=== PATIENT | male | born 1980 | race American Indian/Alaskan Native ===

== ENCOUNTER 2020-12-21 13:32 | Emergency (ER) | payer OTHER ==
--- NOTE | 2020-12-21 14:49 | Emergency Department Report ---
ED Extremity Problem HPI - General Chief complaint: Extremity Problem,Nontraumatic Stated complaint: RT ARM PAIN Time Seen by Provider: 12/21/20 14:40 Source: patient Mode of arrival: Ambulatory Limitations: No Limitations - History of Present Illness Initial comments: Patient is a 40-year-old male presents emergency room complaints of right arm pain and swelling that began 3 days ago. He denies any fall or injury. He denies any history of gout. He denies ever having this in the past. He denies any numbness, paresthesias, or weakness. He states that he has pain with movement. He denies any pain in his neck. He has a past medical history of diabetes and takes Lantus and metformin. He denies any recent surgery, recent travel, chest pain, shortness of breath. He denies any medication allergies. - Related Data Previous Rx's Medication Instructions Recorded Last Taken Type Naproxen [EC-Naproxen] 500 mg PO BID PRN #14 tablet. 12/21/20 Unknown Rx methOCARBAMOL [Robaxin TAB] 500 mg PO BID PRN #14 tab 12/21/20 Unknown Rx Allergies Allergy/AdvReac Type Severity Reaction Status Date / Time No Known Allergies Allergy Unverified 12/21/20 14:17 ED Review of Systems ROS: Stated complaint: RT ARM PAIN Other details as noted in HPI Comment: All other systems reviewed and negative ED Past Medical Hx - Past Medical History Previous Medical History?: Yes Hx Diabetes: Yes - Surgical History Past Surgical History?: No - Medications Home Medications: Home Medications Medication Instructions Recorded Confirmed Last Taken Type Naproxen [EC-Naproxen] 500 mg PO BID PRN #14 tablet. 12/21/20 Unknown Rx methOCARBAMOL [Robaxin TAB] 500 mg PO BID PRN #14 tab 12/21/20 Unknown Rx ED Physical Exam - General Limitations: No Limitations General appearance: alert, in no apparent distress - Head Head exam: Present: atraumatic, normocephalic - Eye Eye exam: Present: normal appearance - ENT ENT exam: Present: mucous membranes moist - Respiratory Respiratory exam: Present: normal lung sounds bilaterally. Absent: respiratory distress, wheezes, rales, rhonchi, stridor, chest wall tenderness, accessory muscle use, decreased breath sounds, prolonged expiratory - Cardiovascular Cardiovascular Exam: Present: regular rate, normal rhythm, normal heart sounds. Absent: systolic murmur, diastolic murmur, rubs, gallop - Extremities Exam Extremities exam: Present: other (no bony ttp of the RUE, trace edema present to the right hand, no increased warmth, no erythema, sensation intact, 2+ radial pulse, FROM of the RUE, pain with ROM Of the joint but has full ROM, 5/5 strength in the BUE, neurovascularly intact, no skin changes) - Neurological Exam Neurological exam: Present: alert, oriented X3 - Psychiatric Psychiatric exam: Present: normal affect, normal mood - Skin Skin exam: Present: warm, dry, intact ED Course Vital Signs 12/21/20 14:18 Temperature 98.8 F Pulse Rate 97 H Respiratory 20 Rate Blood Pressure 165/93 O2 Sat by Pulse 100 Oximetry ED Medical Decision Making - Lab Data Result diagrams: 12/21/20 14:51 12/21/20 14:51 Lab Results 12/21/20 12/21/20 12/21/20 Range/Units 14:51 14:51 14:56 WBC 8.0 (4.5-11.0) K/mm3 RBC 4.72 (3.65-5.03) M/mm3 Hgb 14.7 (11.8-15.2) gm/dl Hct 42.1 (35.5-45.6) % MCV 89 (84-94) fl MCH 31 (28-32) pg MCHC 35 H (32-34) % RDW 14.4 (13.2-15.2) % Plt Count 211 (140-440) K/mm3 Lymph % (Auto) 27.5 (13.4-35.0) % [place] % (Auto) 6.9 (0.0-7.3) % Eos % (Auto) 1.7 (0.0-4.3) % Baso % (Auto) 0.7 (0.0-1.8) % Lymph # (Auto) 2.2 (1.2-5.4) K/mm3 [place] # (Auto) 0.5 (0.0-0.8) K/mm3 Eos # (Auto) 0.1 (0.0-0.4) K/mm3 Baso # (Auto) 0.1 (0.0-0.1) K/mm3 Seg Neutrophils % 63.2 (40.0-70.0) % Seg Neutrophils # 5.0 (1.8-7.7) K/mm3 ESR 7 (0-20) mm/Hr VBG pH (7.320-7.420) Sodium 135 L (137-145) mmol/L Potassium 3.6 (3.6-5.0) mmol/L Chloride 97.6 L (98-107) mmol/L Carbon Dioxide 24 (22-30) mmol/L Anion Gap 17 mmol/L BUN 9 (9-20) mg/dL Creatinine 0.9 (0.8-1.3) mg/dL Estimated GFR > 60 ml/min BUN/Creatinine Ratio 10 % Glucose 463 H (75-100) mg/dL POC Glucose (70-105) mg/dL Uric Acid 6.1 (3.5-7.6) mg/dL Calcium 8.5 (8.4-10.2) mg/dL Total Bilirubin 0.40 (0.1-1.2) mg/dL AST 13 (5-40) units/L ALT 18 (7-56) units/L Alkaline Phosphatase 94 (35-129) units/L Total Creatine Kinase 297 H (55-170) units/L C-Reactive Protein 0.50 (0.00-1.30) mg/dL Total Protein 6.5 (6.3-8.2) g/dL Albumin 4.1 (3.9-5) g/dL Albumin/Globulin Ratio 1.7 % 12/21/20 12/21/20 Range/Units 15:57 18:23 WBC (4.5-11.0) K/mm3 RBC (3.65-5.03) M/mm3 Hgb (11.8-15.2) gm/dl Hct (35.5-45.6) % MCV (84-94) fl MCH (28-32) pg MCHC (32-34) % RDW (13.2-15.2) % Plt Count (140-440) K/mm3 Lymph % (Auto) (13.4-35.0) % [place] % (Auto) (0.0-7.3) % Eos % (Auto) (0.0-4.3) % Baso % (Auto) (0.0-1.8) % Lymph # (Auto) (1.2-5.4) K/mm3 [place] # (Auto) (0.0-0.8) K/mm3 Eos # (Auto) (0.0-0.4) K/mm3 Baso # (Auto) (0.0-0.1) K/mm3 Seg Neutrophils % (40.0-70.0) % Seg Neutrophils # (1.8-7.7) K/mm3 ESR (0-20) mm/Hr VBG pH 7.423 H (7.320-7.420) Sodium (137-145) mmol/L Potassium (3.6-5.0) mmol/L Chloride (98-107) mmol/L Carbon Dioxide (22-30) mmol/L Anion Gap mmol/L BUN (9-20) mg/dL Creatinine (0.8-1.3) mg/dL Estimated GFR ml/min BUN/Creatinine Ratio % Glucose (75-100) mg/dL POC Glucose 411 H (70-105) mg/dL Uric Acid (3.5-7.6) mg/dL Calcium (8.4-10.2) mg/dL Total Bilirubin (0.1-1.2) mg/dL AST (5-40) units/L ALT (7-56) units/L Alkaline Phosphatase (35-129) units/L Total Creatine Kinase (55-170) units/L C-Reactive Protein (0.00-1.30) mg/dL Total Protein (6.3-8.2) g/dL Albumin (3.9-5) g/dL Albumin/Globulin Ratio % - Radiology Data Radiology results: report reviewed Ordering Physician: SALBADOR CHOPRA Date of Service: 12/21/20 Procedure(s): VL venous duplex UE RT Accession Number(s): [id number] cc: SALBADOR CHOPRA DUPLEX DOPPLER UPPER EXTREMITY VENOUS, RIGHT INDICATION / CLINICAL INFORMATION: right arm pain and swelling. TECHNIQUE: Duplex doppler imaging was performed through the veins of the right upper extremity using venous compression and other maneuvers. COMPARISON: None available. FINDINGS: RIGHT INTERNAL JUGULAR VEIN: Negative. RIGHT SUBCLAVIAN VEIN: Negative. RIGHT AXILLARY VEIN: Negative. RIGHT BRACHIAL VEIN: Negative. RIGHT FOREARM VEINS: Negative. RIGHT BASILIC VEIN (SUPERFICIAL): Negative. ADDITIONAL FINDINGS: None. IMPRESSION: 1. No sonographic evidence for DVT. Signer Name: Bassam Horowitz MD Signed: 12/21/2020 3:55 PM Workstation Name: [id number] Transcribed By: GRECIA Dictated By: Bassam Horowitz MD Electronically Authenticated By: Bassam Horowitz MD Signed Date/Time: 12/21/201554 DD/ 54 TD/TT: - Medical Decision Making Patient is a 40-year-old male presents emergency room complaints of right arm pain and swelling that began 3 days ago. He denies any fall or injury. He denies any history of gout. He denies ever having this in the past. He denies any numbness, paresthesias, or weakness. He states that he has pain with movem ent. He denies any pain in his neck. He has a past medical history of diabetes and takes Lantus and metformin. He denies any recent surgery, recent travel, chest pain, shortness of breath. He denies any medication allergies. Vitals are stable. On exam:no bony ttp of the RUE, trace edema present to the right hand, no increased warmth, no erythema, sensation intact, 2+ radial pulse, FROM of the RUE, pain with ROM Of the joint but has full ROM, 5/5 strength in the BUE, neurovascularly intact, no skin changes. No clinical signs of gout or septic joint. Doppler ultrasound: 1. No sonographic evidence for DVT. Symptoms could be related to polyarthritis. Patient be given primary care and orthopedic follow-up. Labs with elevated glucose at 463, otherwise labs are stable. Patient given 10 units subcutaneous insulin and blood glucose improved to 411. I discussed lifestyle modifications with patient and the importance of primary care follow-up for better glycemic control. Discussed case with Dr. Tee, ER attending who agreed with plan and advised that patient can be discharged home with outpatient follow-up. Patient given prescription for naproxen and Robaxin. Advised patient Please take medication as prescribed. Do not drive or operate machinery while taking muscle relaxer Robaxin. May use ice pack, rest, elevation of the arm. Follow-up with a primary care doctor. Please eat a low carbohydrate/low sugar diet. Please monitor your blood pressure sugar regularly and discuss the elevation in your blood sugar during today's visit with your primary care doctor. Follow-up with orthopedic doctor. Return to emergency room for new or worsening symptoms. - Differential Diagnosis Gout, osteoarthritis, DVT, arterial occlusion, rheumatoid arthritis, lupus Critical care attestation.: If time is entered above; I have spent that time in minutes in the direct care of this critically ill patient, excluding procedure time. ED Disposition Clinical Impression: Right arm pain, Hyperglycemia Disposition: DC- TO HOME OR SELFCARE Is pt being admited?: No Does the pt Need Aspirin: No Condition: Stable Instructions: Hyperglycemia, [id number], Musculoskeletal Pain Additional Instructions: Please take medication as prescribed. Do not drive or operate machinery while taking muscle relaxer Robaxin. May use ice pack, rest, elevation of the arm. Follow-up with a primary care doctor. Please eat a low carbohydrate/low sugar diet. Please monitor your blood pressure sugar regularly and discuss the elevation in your blood sugar during today's visit with your primary care doctor. Follow-up with orthopedic doctor. Return to emergency room for new or worsening symptoms. Prescriptions: Naproxen [EC-Naproxen] 500 mg PO BID PRN #[address] tablet.[address] LEVYN Reason: pain methOCARBAMOL [Robaxin TAB] 500 mg PO BID PRN #14 tab PRN Reason: pain Referrals: PRIMARY CAREMD [Primary Care Provider] - 2-3 Days [facility] [Provider Group] - 2-3 Days LINDEN SANTOS MD [Staff Physician] - 2-3 Days Time of Disposition: 18:44 Print Language: BENINESE
[2020-12-21 14:51] VITALS: BP 165/93
[2020-12-21 15:17] LABS: Basophils # (Auto) 0.1 K/mm3 (0.0-0.1); Basophils % (Auto) 0.7 % (0.0-1.8); Eosinophils # (Auto) 0.1 K/mm3 (0.0-0.4); Eosinophils % (Auto) 1.7 % (0.0-4.3); Hematocrit 42.1 % (35.5-45.6); Hemoglobin 14.7 gm/dl (11.8-15.2); Lymphocytes # (Auto) 2.2 K/mm3 (1.2-5.4); Lymphocytes % (Auto) 27.5 % (13.4-35.0); Mean Corpuscular HGB Conc 35 % (32-34); Mean Corpuscular Volume 89 fl (84-94); Monocytes # (Auto) 0.5 K/mm3 (0.0-0.8); Monocytes % (Auto) 6.9 % (0.0-7.3); Platelet Count 211 K/mm3 (140-440); Red Blood Count 4.72 M/mm3 (3.65-5.03); Red Cell Distribution Width 14.4 % (13.2-15.2)
[2020-12-21 15:30] LABS: Alanine Aminotransferase 18 units/L (7-56); Albumin 4.1 g/dL (3.9-5); BUN/Creatinine Ratio 10; Blood Urea Nitrogen 9 mg/dL (9-20); Calcium 8.5 mg/dL (8.4-10.2); Hemolysis Index 18; Uric Acid 6.1 mg/dL (3.5-7.6)
[2020-12-21 15:52] LABS: Erythrocyte Sedimentation Rate 7 mm/Hr (0-20)
--- NOTE | 2020-12-21 15:59 | Vascular Lab Report ---
DUPLEX DOPPLER UPPER EXTREMITY VENOUS, RIGHT INDICATION / CLINICAL INFORMATION: right arm pain and swelling. TECHNIQUE: Duplex doppler imaging was performed through the veins of the right upper extremity using venous comp ression and other maneuvers. COMPARISON: None available. FINDINGS: RIGHT INTERNAL JUGULAR VEIN: Negative. RIGHT SUBCLAVIAN VEIN: Negative. RIGHT AXILLARY VEIN: Negative. RIGHT BRACHIAL VEIN: Negative. RIGHT FOREARM VEINS: Negative. RIGHT BASILIC VEIN (SUPERFICIAL): Negative. ADDITIONAL FINDINGS: None. IMPRESSION: 1. No sonographic evidence for DVT. Signer Name: Bassam Horowitz MD Signed: 12/21/2020 3:55 PM Workstation Name: [id number]
[2020-12-21] MEDS ORDERED: INSULIN REGULAR, HUMAN 100 UNITS/1 ML SUB-Q ONE (16:52)
== END 2020-12-21 19:03 | disposition home or self-care (01) ==
LOC: ED 13:32
DX: M79.601 Pain in right arm (principal); E11.65 Type 2 diabetes mellitus with hyperglycemia; Z79.899 Other long term (current) drug therapy
CPT/HCPCS: 36415; 80053; 82550; 82805; 82962; 84550; 85025; 85652; 86140; 96372; J1815

== ENCOUNTER 2021-11-06 18:48 | Emergency (ER) | payer OTHER ==
[2021-11-06] MEDS ORDERED: ONDANSETRON 4 MG ODT TAB PO ONE (22:05)
[2021-11-06] MEDS ORDERED: BENZONATATE 100 MG CAP PO ONE (22:05)
--- NOTE | 2021-11-06 22:48 | XRay Report ---
CHEST 2 VIEWS INDICATION / CLINICAL INFORMATION: cough, n/v/d. COMPARISON: None available. FINDINGS: SUPPORT DEVICES: None. HEART / MEDIASTINUM: No significant abnormality. LUNGS / PLEURA: No significant pulmonary or pleural abnormality. No pneumothorax. ADDITIONAL FINDINGS: No significant additional findings. IMPRESSION: 1. No active cardiopulmonary disease. Signer Name: Rambo Saucedo II, MD Signed: 11/06/2021 10:43 PM Workstation Name: [id number]
[2021-11-06 23:12] LABS: Alanine Aminotransferase 11 units/L (7-56); Albumin 4.6 g/dL (3.9-5); BUN/Creatinine Ratio 11; Blood Urea Nitrogen 10 mg/dL (9-20); Calcium 8.9 mg/dL (8.4-10.2); Hemolysis Index 11
[2021-11-06 23:20] LABS: Basophils # (Auto) 0.1 K/mm3 (0.0-0.1); Basophils % (Auto) 0.9 % (0.0-1.8); Eosinophils # (Auto) 0.3 K/mm3 (0.0-0.4); Eosinophils % (Auto) 2.5 % (0.0-4.3); Hematocrit 48.8 % (35.5-45.6); Hemoglobin 15.9 gm/dl (11.8-15.2); Lymphocytes # (Auto) 2.8 K/mm3 (1.2-5.4); Lymphocytes % (Auto) 28.1 % (13.4-35.0); Mean Corpuscular HGB Conc 33 % (32-34); Mean Corpuscular Volume 84 fl (84-94); Monocytes # (Auto) 0.6 K/mm3 (0.0-0.8); Monocytes % (Auto) 5.8 % (0.0-7.3); Platelet Count 232 K/mm3 (140-440); Red Blood Count 5.81 M/mm3 (3.65-5.03); Red Cell Distribution Width 14.5 % (13.2-15.2)
--- NOTE | 2021-11-06 23:35 | Emergency Department Report ---
ED General Adult HPI - General Chief complaint: Nausea/Vomiting/Diarrhea Stated complaint: COUGHING,VOMITTING Time Seen by Provider: 11/06/21 22:04 Source: patient Mode of arrival: Ambulatory Limitations: No Limitations - History of Present Illness Initial comments: Patient is a 41-year-old male presents emergency room complaints of a cough that began 2 days ago. He has associated nausea, vomiting, diarrhea. He denies any fever, chest pain, shortness of breath, ear pain. He denies any known sick contacts or recent travel. He has not been vaccinated for COVID-19. He has a past medical history of diabetes and hypertension. 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 He states he has not been on his blood pressure medication in several months and he is not sure what he used to previously take. No allergies to medications. 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 - Related Data Previous Rx's Medication Instructions Recorded Last Taken Type Naproxen [EC-Naproxen] 500 mg PO BID PRN #14 tablet. 12/21/20 Unknown Rx methOCARBAMOL [Robaxin TAB] 500 mg PO BID PRN #14 tab 12/21/20 Unknown Rx Benzonatate [Tessalon Perles] 100 mg PO Q8HR PRN #12 cap 11/06/21 Unknown Rx Ondansetron [Zofran Odt] 4 mg PO Q8HR PRN #12 tab.rapdis 11/06/21 Unknown Rx amLODIPine 10 mg PO DAILY #30 tab 11/06/21 Unknown Rx guaiFENesin ER [Mucinex ER] 600 mg PO Q12H #14 tab 11/06/21 Unknown Rx metFORMIN [Glucophage] 500 mg PO BID #60 tab 11/06/21 Unknown Rx Allergies Allergy/AdvReac Type Severity Reaction Status Date / Time No Known Allergies Allergy Unverified 12/21/20 14:17 ED Review of Systems ROS: Stated complaint: COUGHING,VOMITTING Other details as noted in HPI Comment: All other systems reviewed and negative ED Past Medical Hx - Past Medical History Previous Medical History?: Yes Hx Diabetes: Yes - Surgical History Past Surgical History?: No - Medications Home Medications: Home Medications Medication Instructions Recorded Confirmed Last Taken Type Naproxen [EC-Naproxen] 500 mg PO BID PRN #14 tablet. 12/21/20 Unknown Rx methOCARBAMOL [Robaxin TAB] 500 mg PO BID PRN #14 tab 12/21/20 Unknown Rx Benzonatate [Tessalon Perles] 100 mg PO Q8HR PRN #12 cap 11/06/21 Unknown Rx Ondansetron [Zofran Odt] 4 mg PO Q8HR PRN #12 tab.rapdis 11/06/21 Unknown Rx amLODIPine 10 mg PO DAILY #30 tab 11/06/21 Unknown Rx guaiFENesin ER [Mucinex ER] 600 mg PO Q12H #14 tab 11/06/21 Unknown Rx metFORMIN [Glucophage] 500 mg PO BID #60 tab 11/06/21 Unknown Rx ED Physical Exam - General Limitations: No Limitations General appearance: alert, in no apparent distress - Head Head exam: Present: atraumatic, normocephalic - Eye Eye exam: Present: normal appearance - ENT ENT exam: Present: mucous membranes moist - Respiratory Respiratory exam: Present: normal lung sounds bilaterally. Absent: wheezes, rales, rhonchi, stridor, chest wall tenderness, accessory muscle use, decreased breath sounds, prolonged expiratory - Cardiovascular Cardiovascular Exam: Present: regular rate, normal rhythm, normal heart sounds. Absent: systolic murmur, diastolic murmur, rubs, gallop - Neurological Exam Neurological exam: Present: alert, oriented X3 - Psychiatric Psychiatric exam: Present: normal affect, normal mood - Skin Skin exam: Present: warm, dry, intact ED Course Vital Signs 11/06/21 11/06/21 20:38 23:46 Temperature 98.2 F 98.0 F Pulse Rate 111 H 88 Respiratory 18 17 Rate Blood Pressure 171/102 Blood Pressure 168/100 [Right] O2 Sat by Pulse 98 98 Oximetry ED Medical Decision Making - Lab Data Result diagrams: 11/06/21 22:24 11/06/21 22:24 Lab Results 11/06/21 11/06/21 11/06/21 Range/Units 22:24 22:24 22:24 WBC 10.0 (4.5-11.0) K/mm3 RBC 5.81 H (3.65-5.03) M/mm3 Hgb 15.9 H (11.8-15.2) gm/dl Hct 48.8 H (35.5-45.6) % MCV 84 (84-94) fl MCH 27 L (28-32) pg MCHC 33 (32-34) % RDW 14.5 (13.2-15.2) % Plt Count 232 (140-440) K/mm3 Lymph % (Auto) 28.1 (13.4-35.0) % [place] % (Auto) 5.8 (0.0-7.3) % Eos % (Auto) 2.5 (0.0-4.3) % Baso % (Auto) 0.9 (0.0-1.8) % Lymph # (Auto) 2.8 (1.2-5.4) K/mm3 [place] # (Auto) 0.6 (0.0-0.8) K/mm3 Eos # (Auto) 0.3 (0.0-0.4) K/mm3 Baso # (Auto) 0.1 (0.0-0.1) K/mm3 Seg Neutrophils % 62.7 (40.0-70.0) % Seg Neutrophils # 6.3 (1.8-7.7) K/mm3 VBG pH 7.355 (7.320-7.420) Sodium 139 (137-145) mmol/L Potassium 4.5 (3.6-5.0) mmol/L Chloride 101.2 (98-107) mmol/L Carbon Dioxide 24 (22-30) mmol/L Anion Gap 18 mmol/L BUN 10 (9-20) mg/dL Creatinine 0.9 (0.8-1.3) mg/dL Estimated GFR > 60 ml/min BUN/Creatinine Ratio 11 % Glucose 339 H (75-100) mg/dL Calcium 8.9 (8.4-10.2) mg/dL Total Bilirubin 0.60 (0.1-1.2) mg/dL AST 11 (5-40) units/L ALT 11 (7-56) units/L Alkaline Phosphatase 105 (35-129) units/L Total Protein 7.4 (6.3-8.2) g/dL Albumin 4.6 (3.9-5) g/dL Albumin/Globulin Ratio 1.6 % Lipase 21 (13-60) units/L Vital Signs 11/06/21 11/06/21 20:38 23:46 Temperature 98.2 F 98.0 F Pulse Rate 111 H 88 Respiratory 18 17 Rate Blood Pressure 171/102 Blood Pressure 168/100 [Right] O2 Sat by Pulse 98 98 Oximetry - Radiology Data Radiology results: report reviewed Ordering Physician: SALBADOR CHOPRA Date of Service: 11/06/21 Procedure(s): XR chest routine 2V Accession Number(s): [id number] cc: SALBADOR CHOPRA Fluoro Time In Minutes: CHEST 2 VIEWS INDICATION / CLINICAL INFORMATION: cough, n/v/d. COMPARISON: None available. FINDINGS: SUPPORT DEVICES: None. HEART / MEDIASTINUM: No significant abnormality. LUNGS / PLEURA: No significant pulmonary or pleural abnormality. No pneumothorax. ADDITIONAL FINDINGS: No significant additional findings. IMPRESSION: 1. No active cardiopulmonary disease. Signer Name: Gale Saucedo II, MD Signed: 11/06/2021 10:43 PM Workstation Name: [id number] Transcribed By: LENORE Dictated By: GALE SAUCEDO II, MD Electronically Authenticated By: GALE SAUCEDO II, MD Signed Date/Time: 11/06/212242 DD/ 42 TD/TT: - Medical Decision Making Patient is a 41-year-old male presents emergency room complaints of a cough that began 2 days ago. He has associated nausea, vomiting, diarrhea. He denies any fever, chest pain, shortness of breath, ear pain. He denies any known sick contacts or recent travel. He has not been vaccinated for COVID-19. He has a past medical history of diabetes and hypertension. 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 He states he has not been on his blood pressure medication in several months and he is not sure what he used to previously take. No allergies to medications. 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 Initial vitals with elevated heart rate which improved to normal upon review. Vitals with elevated blood pressure, patient has chronic hypertension and is not on his medication, will start patient on amlodipine daily, discussed lifestyle modifications and primary care follow-up. Breath sounds are clear bilaterally, no wheezing, no rales, no rhonchi. Patient given p.o. medications and had no episodes of vomiting was able to tolerate p.o. intake without difficulty. Lab significant for elevated blood glucose at 339, no signs of DKA, patient states that he just got his Lantus filled today and reports that he is going to take it as it is prescribed by his doctor. Chest x-ray 1. No active cardiopulmonary disease. Patient has no clinical signs of bacterial pneumonia or bacterial bronchitis. No clinical signs of dehydration. Symptoms and examination appear likely consistent with URI. advised patient Please take medication as prescribed. Increase your fluid intake. Follow-up with your primary care doc tor. Return to emergency room for any new or worsening symptoms. Recommend outpatient COVID-19 testing and if positive please self quarantine for 5 days followed by 5 days of strict mask wearing according to the CDC. Please take your Lantus as prescribed by your doctor and please be sure to freq uently monitor your blood glucose. Please begin taking blood pressure medication. Eat a low-sodium diet. Incorporate 36 minutes of daily exercise. Increase your water intake. Please keep a blood pressure log. Please follow-up with your primary care doctor regarding management of your chronic conditions. Critical care attestation.: If time is entered above; I have spent that time in minutes in the direct care of this critically ill patient, excluding procedure time. ED Disposition Clinical Impression: Hyperglycemia, Uncontrolled hypertension URI (upper respiratory infection) Qualifiers: URI type: unspecified URI Qualified Code(s): J06.9 - Acute upper respiratory infection, unspecified Disposition: 01 HOME / SELF CARE / HOMELESS Is pt being admited?: No Does the pt Need Aspirin: No Condition: Stable Instructions: Hyperglycemia, [id number], Viral Respiratory Infection, Hypertension, Adult, Hypertension (ED) Additional Instructions: Please take medication as prescribed. Increase your fluid intake. Follow-up with your primary care doctor. Return to emergency room for any new or worsening symptoms. Recommend outpatient COVID-19 testing and if positive please self quarantine for 5 days followed by 5 days of strict mask wearing according to the CDC. Please take your Lantus as prescribed by your doctor and please be sure to frequently monitor your blood glucose. Please begin taking blood pressure medication. Eat a low-sodium diet. Incorporate 36 minutes of daily exercise. Increase your water intake. Please keep a blood pressure log. Please follow-up with your primary care doctor regarding management of your chronic conditions. Prescriptions: amLODIPine 10 mg PO DAILY #30 tab metFORMIN [Glucophage] 500 mg PO BID #60 tab guaiFENesin ER [Mucinex ER] 600 mg PO Q12H #14 tab Benzonatate [Tessalon Perles] 100 mg PO Q8HR PRN #12 cap PRN Reason: cough Ondansetron [Zofran Odt] 4 mg PO Q8HR PRN #12 tab.rapdis PRN Reason: vomiting Referrals: PRIMARY CAREMD [Primary Care Provider] - 3-5 Days ALE HOLGUIN MD [Staff Physician] - 3-5 Days [facility] [Provider Group] - 3-5 Days Forms: Work/School Release Form(ED) Time of Disposition: 23:33 Print Language: WOLOF
[2021-11-06 23:47] VITALS: BP 168/100
== END 2021-11-06 23:46 | disposition home or self-care (01) ==
LOC: ED 18:48
DX: E11.65 Type 2 diabetes mellitus with hyperglycemia (principal); I10 Essential (primary) hypertension; J06.9 Acute upper respiratory infection, unspecified
CPT/HCPCS: 36415; 71046; 80053; 82805; 83690; 85025; 99283; J3490; Q0162